=== PATIENT | male | born 2000 | race African-American/Black ===

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

== ENCOUNTER 2021-06-03 11:37 | Emergency (ER) | payer MEDICAID, OTHER ==
[~2021-06-03] VITALS: Ht 167.6 cm; Wt 54.4 kg
[2021-06-03 15:51] VITALS: BP 103/70
== END 2021-06-03 16:09 | disposition home or self-care (01) ==
LOC: ER 11:37
DX: K59.00 Constipation, unspecified (principal); K62.89 Other specified diseases of anus and rectum
CPT/HCPCS: 74018